=== PATIENT | female | born 1995 | race African-American/Black ===

== ENCOUNTER 2017-11-01 05:57 | Emergency (ER) | payer SELFPAY ==
[~2017-11-01] VITALS: Ht 165.1 cm; Wt 41.3 kg
--- NOTE | 2017-11-01 06:17 | PHYS DOC ---
Adult General Chief Complaint Chief Complaint: COUGH HPI HPI 22 year old female presents with 5 day history of cough. Cough is productive of greenish sputum. She is mildly short of breath. Patient is a here today because she started coughing this morning the left side of her chest hurt especially her lower ribs. She denies measured fever but has had chills. No known sick contacts. She tried Mucinex days ago when she stopped. She is not taking any current medications. Review of Systems Review of Systems Constitutional: Denies fever or chills [] Eyes: Denies change in visual acuity, redness, or eye pain [] HENT: Denies nasal congestion or sore throat [] Respiratory: Has productuve cough [] Cardiovascular: No additional information not addressed in HPI [] GI: Denies abdominal pain, nausea, vomiting, bloody stools or diarrhea [] : Denies dysuria or hematuria [] Musculoskeletal: Denies back pain or joint pain [] Integument: Denies rash or skin lesions [] Neurologic: Denies headache, focal weakness or sensory changes [] Endocrine: Denies polyuria or polydipsia [] All other systems were reviewed and found to be within normal limits, except as documented in this note. Allergies Allergies Allergies Coded Allergies Type Severity Reaction Last Updated Verified No Known Drug Allergies 11/01/17 No Physical Exam Physical Exam Constitutional: Well developed, thin, no acute distress, non-toxic appearance. [ ] HENT: Normocephalic, atraumatic, bilateral external ears normal, oropharynx moist, no oral exudates, nose normal. [] Eyes: PERRLA, EOMI, conjunctiva normal, no discharge. [] Neck: Normal range of motion, no tenderness, supple, no stridor. [] Cardiovascular: Tachycardia, no murmur [] Lungs & Thorax: decreased breath sounds at the bases [] Abdomen: Bowel sounds normal, soft, no tenderness, no masses, no pulsatile masses. [] Skin: Warm, dry, no erythema, no rash. [] Back: No tenderness, no CVA tenderness. [] Extremities: No tenderness, no cyanosis, no clubbing, ROM intact, no edema. [] Neurologic: Alert and oriented X 3, normal motor function, normal sensory function, no focal deficits noted. [] Psychologic: Affect normal, judgement normal, mood normal. [] EKG EKG [] Radiology/Procedures Radiology/Procedures No acute cardiopulmonary findings[] Course & Med Decision Making Course & Med Decision Making Pertinent Labs and Imaging studies reviewed. (See chart for details) Patient's chest x-ray is unremarkable. She was tachycardic on arrival I have ordered her a liter of fluids. Additionally, I ordered a d-dimer for low risk he PE rule out. Patient's labs are unremarkable. Her urine is negative. After some fluids, her rate improved. Patient's symptoms seem to be caused by a viral illness. I will discharge her with Tessalcarmelina Banerjee for cough and advised that she get rest and stay hydrated. [] Dragon Disclaimer Dragon Disclaimer This electronic medical record was generated, in whole or in part, using a voice recognition dictation system. Departure Departure: Referrals: PCPAMADO (PCP) Scripts Benzonatate (TESSALON PERLE) 100 Mg Capsule 1 CAP PO TID PRN for COUGH, #30 CAP Prov: REYES ONEAL DO 11/01/17 REYES ONEAL DO November 01, 2017 06:17
[2017-11-01] MEDS ORDERED: IV NORMAL SALINE 1,000ML 1,000 ML IV ONE (07:00)
[2017-11-01 07:08] LABS: CALCIUM 8.7 mg/dL (8.5-10.1); CREATININE 0.7 mg/dL (0.6-1.0); GFR 126.6; POTASSIUM 3.3 mmol/L (3.5-5.1)
[2017-11-01 07:09] LABS: BASO # 0.1 x10^3/uL (0.0-0.2); BASO % 1 % (0-3); EOS % 0 % (0-3); HEMOGLOBIN 12.8 g/dL (12.0-15.5); LYMPH # 3.3 x10^3/uL (1.0-4.8); LYMPH % 29 % (24-48); MEAN CORPUSCULAR HEMOGLOBIN 26 pg (25-35); MEAN CORPUSCULAR HGB CONC 33 g/dL (31-37); MEAN CORPUSCULAR VOLUME 78 fL (79-100); MONO # 1.3 x10^3/uL (0.0-1.1); MONO % 11 % (0-9); NEUT # 6.8 x10^3uL (1.8-7.7); NEUT % 59 % (31-73); PLATELET COUNT 332 x10^3/uL (140-400); RED BLOOD COUNT 5.01 x10^6/uL (3.50-5.40); RED CELL DISTRIBUTION WIDTH 16.1 % (11.5-14.5); WHITE BLOOD COUNT 11.6 x10^3/uL (4.0-11.0)
[2017-11-01 07:18] LABS: BILIRUBIN,URINE NEG (NEG); CLARITY,URINE HAZY; COLOR,URINE AMBER; GLUCOSE,URINE NEG (NEG)
[2017-11-01 07:19] LABS: BACTERIA,URINE FEW /HPF (0-FEW); NITRITE,URINE NEG (NEG); RBC,URINE OCC /HPF (0-2); SQUAMOUS EPITHELIAL CELL,UR FEW /LPF; UROBILINOGEN,URINE 2 mg/dL (0.2 mg/dL)
[2017-11-01] MEDS ORDERED: MORPHINE SULFATE 4 MG/ML DISP.SYRIN. IM ONE (07:30)
[2017-11-01] MEDS ORDERED: BENZ100C PO (07:33)
--- NOTE | 2017-11-01 07:43 | RAD ---
CHEST PA LATERAL History: Cough for several weeks Comparison: None. Findings: 2 views of the chest are submitted. There is some patchy mild infiltrate left lung base likely in the left lower lobe. There is no dependent pleural fluid or pneumothorax. Impression: 1. There is some patchy mild infiltrate left lower lobe at the base. Electronically signed by: Bg Goldman MD (11/01/2017 7:40 AM) [facility]
[2017-11-01] MEDS ORDERED: MORPHINE SULFATE 4 MG/ML DISP.SYRIN. IV ONE (07:45)
[2017-11-01 07:53] VITALS: BP 105/70
== END 2017-11-01 08:00 | disposition home or self-care (01) ==
LOC: ER 05:57
DX: B34.9 Viral infection, unspecified (principal); R07.89 Other chest pain
CPT/HCPCS: 36415; 71046; 80048; 81001; 81025; 85025; 85379; 96374; 99285; J2270; J7030